=== PATIENT | male | born 1940 | race Caucasian/White ===

== ENCOUNTER 2024-11-23 00:13 | Emergency (ER) | payer MEDICARE, OTHER ==
[2024-11-23] MEDS ORDERED: Sodium Chloride 0.9% 10 ML Syringe FLUSH PRN (00:38)
[2024-11-23 00:46] LABS: HEMATOCRIT 34.9 % (40.0-54.0); HEMOGLOBIN 11.2 g/dL (14.0-18.0); MEAN CORPUSCULAR HEMOGLOBIN 32.5 pg (27.0-34.0); MEAN CORPUSCULAR HGB CONC 32.1 g/dL (33.0-35.0); MEAN CORPUSCULAR VOLUME 101.2 fL (80-100); PLATELET COUNT,PLT 153 10^3/uL (150-450); RED BLOOD CELL COUNT 3.45 10^6/uL (4.6-6.2); WHITE BLOOD CELL COUNT,WBC 11.7 10^3/uL (5.0-10.0)
[2024-11-23 00:48] LABS: BASOPHILS PERCENT AUTO 0.3 % (0.0-1.0); EOSINOPHILS PERCENT AUTO 0.1 % (1.0-3.0); LYMPHOCYTES PERCENT AUTO 4.1 % (20.5-50.1); MONOCYTES PERCENT AUTO 4.1 % (2-8); NEUTROPHILS PERCENT AUTO 91.4 % (42.2-75.2)
[2024-11-23] MEDS ORDERED: Naloxone 2 MG/2 ML Syringe IVPUSH PRN (00:49)
[2024-11-23] MEDS: Sodium Chloride 0.9% 1,000 ML IV ONE (00:56)
[2024-11-23] MEDS: Ondansetron 4 MG/2 ML SDV IVPUSH ONE (01:00)
[2024-11-23] MEDS: Morphine 2 MG/ML SYRINGE IVPUSH ONE ×3 (01:00→04:53)
[2024-11-23 01:07] LABS: ALBUMIN 3.1 g/dL (3.4-5.0); ANION GAP 14.9 mEq/L (7-13); BILIRUBIN TOTAL 0.4 mg/dL (0.2-1.0); CALCIUM 8.6 mg/dL (8.5-10.1); EST CRCL DRUG DOSING (CG) 30.33 mL/min; MAGNESIUM 1.6 mg/dL (1.8-2.4); POTASSIUM,K 3.9 mmol/L (3.5-5.1); PROTEIN TOTAL,TP 5.5 g/dL (6.4-8.2)
[2024-11-23 01:11] LABS: A/G RATIO 1.29
[2024-11-23] MEDS: Magnesium Sulfate/Water Premix 2 GM in Premix Bag 1 BAG IV ONE (01:45)
[2024-11-23 02:07] LABS: BAND PERCENT MAN 10 %; LYMPHOCYTES PERCENT MAN 6 % (20-50); MONOCYTES PERCENT MAN 3 % (2-8); SEG NEUTROPHILS PERCENT MAN 81 % (42-75)
[2024-11-23] MEDS: Iopamidol 612 MG/ML 100 ML Bottle IVPUSH ONE (02:16)
[2024-11-23] MEDS: Acetaminophen 500 MG Tab PO ONE (03:23)
[2024-11-23] MEDS: fentaNYL 100 MCG/2 ML SDV IVPUSH ONE (03:23)
[2024-11-23 03:43] LABS: APPEARANCE,URINE CLEAR (CLEAR); BILIRUBIN,URINE NEGATIVE (NEGATIVE); COLOR,URINE YELLOW (YELLOW); GLUCOSE,URINE NEGATIVE (NEGATIVE); KETONES,URINE NEGATIVE (NEGATIVE); LEUKOCYTE ESTERASE,URINE NEGATIVE (NEGATIVE); NITRITE,URINE NEGATIVE (NEGATIVE); OCCULT BLOOD,URINE NEGATIVE (NEGATIVE); PH,URINE 5.5 (5.0-9.0); PROTEIN,URINE NEGATIVE (NEGATIVE); UROBILINOGEN,URINE 0.2 mg/dL (0.2-1.0)
[2024-11-23] MEDS: Sodium Chloride 0.9% 500 ML IV SCH (04:52)
[2024-11-23 05:12] VITALS: BP 103/54; PULSE 79
== END 2024-11-23 05:04 ==
LOC: DL.ED 00:13
DX: K57.80 Diverticulitis of intestine, part unspecified, with perforation and abscess without bleeding (principal); I10 Essential (primary) hypertension; E11.9 Type 2 diabetes mellitus without complications; Z88.8 Allergy status to other drugs, medicaments and biological substances; Z79.82 Long term (current) use of aspirin; Z79.899 Other long term (current) drug therapy
CPT/HCPCS: 36415; 71260; 74177; 80053; 81003; 83605; 83690; 83735; 84484; 85025; 87040; 87428; 93005; 96361; 96365; 96375; 96376; 99285; A9270; J0457; J2270; J2405; J3010; J3475; J7030; J7040; Q9967

== ENCOUNTER 2024-12-07 20:30 | Emergency (ER) | payer MEDICARE, OTHER ==
[2024-12-07] MEDS: HYDROmorphone 1 MG/ML Syringe IVPUSH ONE (21:24)
[2024-12-07] MEDS: HYDROmorphone 2 MG Tab PO ONE (21:56)
[2024-12-07 22:15] VITALS: BP 167/75; PULSE 61
== END 2024-12-07 22:09 | disposition home or self-care (01) ==
LOC: DL.ED 20:30
DX: R10.9 Unspecified abdominal pain (principal); I10 Essential (primary) hypertension; E11.9 Type 2 diabetes mellitus without complications; Z79.82 Long term (current) use of aspirin; Z79.2 Long term (current) use of antibiotics; Z79.899 Other long term (current) drug therapy; Z88.8 Allergy status to other drugs, medicaments and biological substances
CPT/HCPCS: 96374; 99283; A9270; J1171

== ENCOUNTER 2024-12-07 23:15 | Emergency (ER) | payer MEDICARE, OTHER ==
[2024-12-07] MEDS ORDERED: Sodium Chloride 0.9% 10 ML Syringe FLUSH PRN (23:57)
[2024-12-08 00:36] LABS: HEMATOCRIT 35.2 % (40.0-54.0); HEMOGLOBIN 11.2 g/dL (14.0-18.0); MEAN CORPUSCULAR HEMOGLOBIN 32.8 pg (27.0-34.0); MEAN CORPUSCULAR HGB CONC 31.8 g/dL (33.0-35.0); MEAN CORPUSCULAR VOLUME 103.2 fL (80-100); PLATELET COUNT,PLT 286 10^3/uL (150-450); RED BLOOD CELL COUNT 3.41 10^6/uL (4.6-6.2); WHITE BLOOD CELL COUNT,WBC 10.5 10^3/uL (5.0-10.0)
[2024-12-08 00:39] LABS: APPEARANCE,URINE CLEAR (CLEAR); BILIRUBIN,URINE NEGATIVE (NEGATIVE); COLOR,URINE YELLOW (YELLOW); GLUCOSE,URINE NEGATIVE (NEGATIVE); KETONES,URINE NEGATIVE (NEGATIVE); LEUKOCYTE ESTERASE,URINE NEGATIVE (NEGATIVE); NITRITE,URINE NEGATIVE (NEGATIVE); OCCULT BLOOD,URINE NEGATIVE (NEGATIVE); PROTEIN,URINE 100 (NEGATIVE); UROBILINOGEN,URINE 0.2 mg/dL (0.2-1.0)
[2024-12-08 00:39] LABS: BASOPHILS PERCENT AUTO 0.3 % (0.0-1.0); EOSINOPHILS PERCENT AUTO 0.2 % (1.0-3.0); LYMPHOCYTES PERCENT AUTO 6.3 % (20.5-50.1); MONOCYTES PERCENT AUTO 6.4 % (2-8); NEUTROPHILS PERCENT AUTO 86.8 % (42.2-75.2)
[2024-12-08] MEDS: Ondansetron 4 MG/2 ML SDV IVPUSH ONE (00:41)
[2024-12-08] MEDS: Famotidine 20 MG/2 ML SDV IVPUSH ONE (00:41)
[2024-12-08] MEDS: Sodium Chloride 0.9% 1,000 ML IV SCH (00:41)
[2024-12-08] MEDS: HYDROmorphone 1 MG/ML Syringe IVPUSH ONE (00:41)
[2024-12-08 00:50] LABS: ALBUMIN 2.8 g/dL (3.4-5.0); ANION GAP 18.2 mEq/L (7-13); BILIRUBIN TOTAL 0.4 mg/dL (0.2-1.0); BUN/CREATININE RATIO 20.9 (No establ ref range); CALCIUM 9.6 mg/dL (8.5-10.1); CREATININE 2.44 mg/dL (0.70-1.30); EST CRCL DRUG DOSING (CG) 24.1 mL/min; MAGNESIUM 1.7 mg/dL (1.8-2.4); POTASSIUM,K 4.2 mmol/L (3.5-5.1); PROTEIN TOTAL,TP 6.5 g/dL (6.4-8.2)
[2024-12-08 00:51] LABS: BACTERIA,URINE RARE /HPF (0-FEW/HPF); EPITHELIAL CELLS,URINE FEW /HPF (NOT SEEN); MUCUS,URINE FEW /LPF (NOT SEEN); RBC,URINE 0-5 /HPF (0-5); WBC,URINE 0-5 /HPF (0-5/HPF)
[2024-12-08 00:51] LABS: A/G RATIO 0.76
[2024-12-08 00:52] LABS: HYALINE CASTS,URINE RARE
[2024-12-08 00:57] LABS: BAND PERCENT MAN 8 %; LYMPHOCYTES PERCENT MAN 8 % (20-50); MONOCYTES PERCENT MAN 4 % (2-8); SEG NEUTROPHILS PERCENT MAN 80 % (42-75)
[2024-12-08 00:58] LABS: LACTIC ACID 4.3 mmol/L (0.4-2.0)
[2024-12-08 02:37] VITALS: BP 134/78; PULSE 109
[2024-12-08] MEDS: fentaNYL 100 MCG/2 ML SDV IVPUSH ONE (03:13)
== END 2024-12-08 03:19 ==
LOC: DL.ED 23:15
DX: A41.9 Sepsis, unspecified organism (principal); R65.20 Severe sepsis without septic shock; N17.9 Acute kidney failure, unspecified; K63.1 Perforation of intestine (nontraumatic); L02.211 Cutaneous abscess of abdominal wall; E87.20 Acidosis, unspecified; I12.9 Hypertensive chronic kidney disease with stage 1 through stage 4 chronic kidney disease, or unspecified chronic kidney disease; N18.32 Chronic kidney disease, stage 3b; N18.31 Chronic kidney disease, stage 3a; E11.22 Type 2 diabetes mellitus with diabetic chronic kidney disease; E66.9 Obesity, unspecified; Z68.37 Body mass index [BMI] 37.0-37.9, adult; Z87.891 Personal history of nicotine dependence; Z88.8 Allergy status to other drugs, medicaments and biological substances; Z79.82 Long term (current) use of aspirin; Z79.899 Other long term (current) drug therapy; Z79.2 Long term (current) use of antibiotics
CPT/HCPCS: 36415; 80053; 81001; 83605; 83690; 83735; 85025; 96361; 96374; 96375; 99283; 99285; A9270; J1171; J2405; J3010; J7030